=== PATIENT | male | born 1960 | race Caucasian/White ===

== ENCOUNTER 2021-11-08 13:15 | Outpatient (RCR) | payer BC, SELFPAY ==
--- NOTE | 2021-08-12 10:10 | PTOPEVAL ---
Thank you for referring Bruno El to [facility].? The patient is scheduled to be seen for therapy? 2 x/week for 10 weeks. Please review, sign, date and return this plan of care MARZENA. I agree with and certify that the following plan of care is medically necessary. 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 Subjective Information He has trouble moving the Query Text:As Reported By Patient/ right leg with the prosthesis Family and c/o pain with wearing prosthesis. He is not able to walk with his new prosthesis. He has a wc and walker for mobility. He works at [employer]. 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 Lives with his mother. He is performing HEP. He had rehab at [facility] for 8-10 days. Prior Level of Function Home Setting Home Type House,Multiple Levels Environmental Barriers Ramp,Stairs, Greater than 4 Living Situation With Parent Mobility Assistive Devices (Used Last 3 Walker, Wheeled,Wheelchair, Months) Manual Comments Additional Prior Level of Function Multi level house but he has a Comments room off the garage with bathroom. He room is in the basement and the bathroom in upstairs. Pain Assessment Self Report Pain Assessment Right Leg(s) Reported Pain Level 6 Pain Description Cramping,Phantom,Tender on Palpation Pain Frequency Acute Lowest Pain Intensity 0 Greatest Pain Intensity 6 Pain Aggravating Factors Weight Bearing/Standing Lower Extremity Range of Motion Reason Not Measured WNL/Left,WNL/Right Lower Extremity Muscle Strength Testing Hip Strength Right Hip Flexion Strength 3 Fair Hip Extension Strength 3 Fair Hip Abduction Strength 3 Fair Left Hip Flexion Strength 4+ Good + Hip Extension Strength 3+ Fair + Hip Abduction Strength 3+ Fair + Knee Strength Left Knee Flexion Strength 5 Normal Knee Extension Strength 5 Normal Transfer Assessment Ambulation Assistive Devices Walker, Rollator,Walker, Wheeled Bed Transfer Destination Chair
--- NOTE | 2021-08-19 12:26 | PCPTNOTE ---
Addendum entered by Nguyen Baez, PT, DPT 08/19/21 12:26: patient arrived for his appointment at 11:45 today stating that he thought his appointment was at 12:15PM. He was informed of his actual appointment time and was provided with a new print out of appointment times. He did reschedule today's appointment for 08/20/21 at 1515. Original Note: Patient did not show up for scheduled appointment this date.
--- NOTE | 2021-09-04 15:37 | PCPTNOTE ---
The patient treatment was not able to be completed on 09/04/21 due to not feeling well, checked his BP 125/47, sat & rested 5 mins rechecked BP 98/50, patient called his Dr, & is scheduled to see him tomorrow. Patient to call when he gets home & is to monitor his BP. Will plan to continue treatment per plan of care.
--- NOTE | 2021-10-04 14:24 | PCPTNOTE ---
Patient called & cancelled scheduled appointment this date due to having to go get blood.
--- NOTE | 2021-10-17 15:58 | PTOPEVAL ---
PHYSICAL THERAPY PROGRESS REPORT Thank you for referring Bruno El to [facility].? The patient is scheduled to be seen for therapy? 2x/week for 5 weeks. Please review, sign, date and return this plan of care MARZENA. I agree with and certify that the following plan of care is medically necessary. 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 Subjective Information States he is wearing his Query Text:As Reported By Patient/ prosthetic about 4 hours a day Family . he drives to the [place] and walks in and watches the game. States that he walks up and down his driveway with the prosthetic. 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 Requires Assistance Look Behind Shoulder - Standing Turns Sideways Only Turning 360 Degrees Requires Assistance Unsupported Stance, Alternating Feet on Assist to Prevent Fall Stair Unsupported Tandem Stance Assist to Step-15 seconds Unilateral Leg Stance Lifts Leg/Unable to Hold ALVA Balance Evaluation Total Score ( 33 points) Comments original score: Gait Assessment Gait Assessment Ambulation Assistive Devices Walker, Wheeled Orthotic/Prosthetic Devices Right Lower Extremity Prosthesis Ambulation Speed (feet/second) 0.6 Ambulation Destination In Gym Ambulation Direction Forward Ambulation Surface Level Ambulation Ability Contact Guard Cues Needed For Ambulation Verbal Additional Ambulation Comments demonstrated proper hip protraction 90% of the time today, Stair Climbing Assessment Stair Climbing Assessment Stair Climbing Assistive Devices Railings Technique Single Steps Stair Climbing Direction Both Up and Down Stair Climbing Ability Independent PT Clinical Summary Pt referred to therapy due to
--- NOTE | 2021-10-23 15:02 | PCPTNOTE ---
Patient called & cancelled scheduled appointment this date due to not feeling well.
--- NOTE | 2021-10-24 15:05 | PCPTNOTE ---
Addendum entered by Vandana Epps, DIGITAL SAL[employer] MANAGER 10/24/21 15:07: this was for his appointment tomorrow 10/25/21 Original Note: Patient called & cancelled scheduled appointment this date due to having 2 dime size blisters, about 2 inch from the incision line. Told him to keep the prosthesis off for a few days to let it heal.
--- NOTE | 2021-10-28 13:37 | PCPTNOTE ---
Patient called & cancelled scheduled appointment this date due to still having blister's, and is trying to get in to see the
--- NOTE | 2021-11-01 11:04 | PCPTNOTE ---
Patient called & cancelled scheduled appointment this date due to blister still not being all the way healed.
--- NOTE | 2021-11-11 09:38 | PCPTNOTE ---
This treatment is being continued on visit number [id number]. Please see documentation on both accounts to view progress. Completed interventions, outcomes, and problems have been marked as Inactive to facilitate the copying of the Care plan routine for recurring accounts.
== END 2021-11-10 23:59 | disposition home or self-care (01) ==
LOC: ANHPT 13:15
PROVIDERS: PCP Internal Medicine; Referring Provider Internal Medicine; Visit Provider Internal Medicine
DX: R26.89 Other abnormalities of gait and mobility (principal)
CPT/HCPCS: 97110; 97112; 97116; 97162; 97530; 97761; 97763

== ENCOUNTER 2022-02-07 15:30 | Outpatient (RCR) | payer BC, SELFPAY ==
--- NOTE | 2021-11-11 09:39 | PCPTNOTE ---
The treatment documented on this account is a continuation of the treatment documented on visit number [id number]. Please see documentation on both accounts to view progress. The Plan of Care has been transitioned and updated within the new V#. I have addressed and agree with the discipline specific Problems, Interventions, and Goals for the current certification period. Completed interventions, outcomes, and problems have been marked as Inactive to facilitate the copying of the Care plan routine for recurring accounts.
--- NOTE | 2021-11-20 15:59 | PTOPEVAL ---
PHYSICAL THERAPY RE-EVALUATION AND UPDATED PLAN OF CARE 11-20-21 Refer to the clinical summary below, for his status today, compared to the last reevaluation. Progress was minimal due to missing therapy because of a blister on his residual limb. Continue PT 2x/wk for 5 weeks. Thank you for referring Bruno El to [facility].? Please review, sign, date and return this updated plan of care [facility]. I agree with and certify that the following plan of care is medically necessary. Referring Physician Date Attending Provider: Juliana De La Fuente MD Subjective Information Durga reports: therapy has Query Text:As Reported By Patient/ been going well; slowed down Family due to blister on leg and not able to come in; blister is now healed; also have bowel problems, some days cannot get off the toliet; now one dr is telling him he has some kidney failure and another is telling him it is OK; yesterday, wore prosthesis for about 1 & 1/2 hours, 2x; was up to 6 hr a day before blister started; is wearing shaper sock; at home, walk with the wheeled walker, with just his one leg or when prosthesis on; use w/c for distances in community--use w/ c in the house when first get up in AM only; doing leg exercises at home; Pain Assessment Pain Scale Pain Scale Used Numeric (1 - 10) Self Report Pain Assessment Right Leg Pain Frequency Chronic,Intermittent Other Pain Description spasm in leg--distal posterior leg Lowest Pain Intensity 0 Greatest Pain Intensity 5 Interventions Used Interventions Used By Clinicians Education,Exercise Balance Comment static stand without UE support; reports at home in kitchen 45 min Chicas Balance Assessment Sitting to Standing Independent w/Hands Unsupported Stance Ability Safely- 2 minutes Sitting Unsupported, Feet on Floor Safely- 2 minutes Standing to Sitting Safely, Minimal Hand Use Transfer Ability Safely, Minimal Hand Use Unsupported Stance- Eyes Closed Safely, 10 seconds Unsupported Stance- Feet Together Assist to attain, 15 secs Reaching Forward while Standing Safely, 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
--- NOTE | 2021-11-27 15:59 | PCPTNOTE ---
Patient's came in for therapy, but, had to leave due stomach issues.
--- NOTE | 2021-11-29 16:11 | PCPTNOTE ---
Patient called & cancelled scheduled appointment this date due to left knee pain.
--- NOTE | 2021-12-25 16:18 | PTOPEVAL1 ---
Assessment and note entered by Raven Mills, PT Evaluation Information Assessment Status Re-evaluation Subjective Information Bruno reports: walking and balance are better, doing more exercises for standing balance; wearing the prosthesis 4- 4& 1/2 hours at a time; now have 1 ply sock on; have not had any falls; in the house, use w/c when not wearing the R leg; sometimes walk in home without walker--holding counter top or furniture; Reported Pain Level Pain Score Self Report Additional Pain Score Comments pain range of 0-2/10 R LE, have cramps and spasms in R leg, causing problems with sleeping; Assessment PT Clinical Summary Bruno has received a total of 25 PT sessions; Compared to the last reevaluation he has improved with: decreased pain of R leg; increase wearing time of prosthesis to 4 & 1/2 hours, with good skin checks; increased walking distance with CGA for safety with wheeled walker from 225' to 450'; has started gait training with large based quad cane; Chicas balance score improved by 1 point; Continue PT treatment to further increase gait/ standing balance and gait with quad cane. Plan of Care Interventions Gait Training,Neuro Re-education,Prosthetic Training,Therapeutic Activities,Therapeutic Exercise PT Services Indicated Yes Treatment Frequency and 1x/wk for 6 weeks Duration These treatments will address the objective and functional deficits as defined above. The patient will be advanced safely and appropriately in order for the patient to progress towards his/her prior level of function. Additional exercises will be introduced and as well as a comprehensive home exercise program upon discharge, if needed, ?to ensure carryover of functional gains achieved in the clinic. This treatment plan has been reviewed and agreement upon by the patient.
--- NOTE | 2022-02-07 16:19 | PTOPDC ---
Assessment and note entered by Raven Mills, PT Evaluation Information Assessment Status Discharge Subjective Information Bruno reports: went to [employer] [facility] [employer] [facility] and going to change my prosthesis; have next appt there next week to start the new prosthesis; fell, outside working on pool, pool cover was blown over and hit him, fell onto concrete, rib bruising and soreness; wearing prosthesis- total 5 hour during day, time varies from 1 hr to 5 hours-- hurts leg; doing the leg exercises at home; use wheeled walker in home, walk 10-20 x/day from room /room; going into basement, hand rails both sides Reported Pain Level Pain Score Self Report Additional Pain Score Comments soreness of R leg, range of 0-8/10; sometimes itches in leg; some light red blotches over anterior L leg, flat skin; discomfort with lying on his side; Assessment PT Clinical Summary Bruno has received a total of 28 PT sessions. Compared to the last reevaluation: pain at the worst rating of R leg has increased from 2 to 8/10 ; wearing time of his prosthesis is total for day of 5 hours, but not able to wear each time for 5 hr at time, takes off at 1 hour sometimes due to pain; walking time has decreased by about 1 min and 20 seconds and distance decreased from 450' to 330' with the wheeled walker; he did not want to walk with the quad cane today, due to L knee giving out on him; Chicas balance score increase by 2 points. He reports no problems at home with getting around with walker and wheelchair; he is going down the basement stairs with B hand rails. He had a recent fall when standing outside and doing something with a pool cover. He is indep with don /doffing his prosthesis. Goals were partially met. He is going to have some changes made with his prosthesis and will be without it for awhile. Will Discharge PT services at this time. When changes made in the prosthesis and he is ready to resume PT, he will obtain a new order to continue therapy. Plan of Care PT Services Indicated No
== END 2022-02-09 23:59 | disposition home or self-care (01) ==
LOC: ANHPT 15:30
PROVIDERS: PCP Internal Medicine; Referring Provider Internal Medicine; Visit Provider Internal Medicine
DX: R26.89 Other abnormalities of gait and mobility (principal)
CPT/HCPCS: 97110; 97112; 97116; 97530; 97763

== ENCOUNTER 2022-06-23 15:30 | Outpatient (RCR) | payer BC, SELFPAY ==
--- NOTE | 2022-04-09 10:56 | PTOPEVAL1 ---
Assessment and note entered by Darrius Delatorre, PT Evaluation Information Assessment Status Evaluation Diagnosis gait difficulty following L AKA Onset 03/19 Subjective Information Patient had a R BKA and then AKA about a month apart at the end of 2020. He has been coming to physical therapy before, but then was out for around 3 weeks with COVID which he reports kept him in bed the entire time, only able to get OOB yesterday. He mainly gets around in a WC, but would like to be able to return to work and is hoping to get a more advance prosthetic that will help with hip and knee flexion more. Clinical Summary Mr. El is a 61 year old male coming into the clinic to improve his gait and progressing to the least restrictive assistive device needed along with stair training. Patient's residual limb looks well healed, does have some redness after walking. Already independent with wheelchair and wheeled walker for community distance. These treatments will address the objective and functional deficits as defined above. The patient will be advanced safely and appropriately in order for the patient to progress towards his/her prior level of function. Additional exercises will be introduced and as well as a comprehensive home exercise program upon discharge, if needed, ?to ensure carryover of functional gains achieved in the clinic. This treatment plan has been reviewed and agreement upon by the patient.
--- NOTE | 2022-04-29 15:52 | PCPTNOTE ---
Patient called & cancelled scheduled appointment this date due to truck won't start.
--- NOTE | 2022-05-06 15:03 | PCPTNOTE ---
Pt came to therapy appointment, he discovered he did not have his bag with items for his prosthetic. Requested if we could reschedule so he can get a full treatment with his prosthetic. Was able to reschedule Pt.
--- NOTE | 2022-05-21 15:34 | PCPTNOTE ---
Patient called & cancelled scheduled appointment this date due to not feeling well.
--- NOTE | 2022-05-23 16:31 | PTOPEVAL1 ---
Assessment and note entered by Darrius Delatorre, PT Evaluation Information Assessment Status Re-evaluation Diagnosis R above knee amputation Onset 03/19 Subjective Information Patient reports he knows the RLE is getting stronger and bigger because the prosthetic is feeling tight, but the LLE is getting tired more easily. Patient also reports being sick earlier this weak and still recovering. Reported Pain Level Pain Score 3: Self Report Assessment PT Clinical Summary Durga is a 61 year old male coming in the clinic to work on functional mobility following a R AKA. Patient would like to get back to work. He is MOD I with his wheelchair and walking 300' with the wheeled walker. Patient reports he needs to be able to go up and down 2 flights of stairs with 1 railing and would also like to be able to walk without assistive device. Unsure if patient will be able to do that, but with weather changing will try to do walking on unstable surfaces if okay for more treatments along with improving endurance and balance. Plan of Care Interventions Electrical Stimulation,Gait Training,Hot Pack/Cold Pack,Manual Therapy,Neuro Re-education,Patient/ Caregiver Education,Therapeutic Activities, Therapeutic Exercise PT Services Indicated Yes Treatment Frequency and 2x/wk for 8 visits Duration These treatments will address the objective and functional deficits as defined above. The patient will be advanced safely and appropriately in order for the patient to progress towards his/her prior level of function. Additional exercises will be introduced and as well as a comprehensive home exercise program upon discharge, if needed, ?to ensure carryover of functional gains achieved in the clinic. This treatment plan has been reviewed and agreement upon by the patient.
--- NOTE | 2022-06-17 12:35 | PCPTNOTE ---
Patient called & cancelled scheduled appointment this date due to being sick.
--- NOTE | 2022-06-25 12:11 | PTOPDC ---
Assessment and note entered by Darrius Delatorre, PT Evaluation Information Assessment Status Discharge Diagnosis gait training and strengthening post R AKA Onset 03/19 Subjective Information Patient reports that he has an appointment with his cardiac surgeon to look at his LLE secondary to cramping and concerns about blood flow and an appointment with [employer] to trim his prosthetic to allow it to be more comfortable. He has still been dealing with inconsistent feelings of being sick. Assessment PT Clinical Summary Mr. El is a 62 year old male coming into the clinic to work on functional mobility and strengthening after a R AKA. He was evaluated on Apr 07, 2022 and has attended 17 session with 3 cancelations. Patient is MOD I with walking with the rolling walker, but unable to progress past that and increasing distance is limited secondary to cramping in the LLE. At this time physical therapist thinks it is prudent to have patient see his cardiac surgeon to ruled out any blockage issues of the L calf as he reports this is what is felt like before they needed to do the amputation on the RLE. Will discharge from skilled physical therapy at this time and once cleared by his cardiac surgeon if patient wants can be re- evaluated. Plan of Care Interventions Electrical Stimulation,Gait Training,Hot Pack/Cold Pack,Manual Therapy,Neuro Re-education,Patient/ Caregiver Education,Therapeutic Activities, Therapeutic Exercise PT Services Indicated No Treatment Frequency and Discharged from skilled physical therapy. Duration
== END 2022-06-26 08:39 | disposition home or self-care (01) ==
LOC: ANHPT 15:30
PROVIDERS: PCP Internal Medicine
DX: Z47.81 Encounter for orthopedic aftercare following surgical amputation (principal); Z74.09 Other reduced mobility; Z78.9 Other specified health status; Z89.611 Acquired absence of right leg above knee
CPT/HCPCS: 97110; 97112; 97116; 97161; 97530